=== PATIENT | male | born 1955 | race Caucasian/White ===

== ENCOUNTER 2021-10-17 10:26 | Emergency (ER) | payer MEDICARE, OTHER ==
[2021-10-17] MEDS ORDERED: MEDROL DOSEPAK 24 MG PO (14:32)
== END 2021-10-17 14:43 | disposition home or self-care (01) ==
LOC: ER1 10:26
DX: M51.86 Other intervertebral disc disorders, lumbar region (principal); F17.200 Nicotine dependence, unspecified, uncomplicated
CPT/HCPCS: 72131; 96374; 99283; J2930

== ENCOUNTER → 2021-10-21 | Outpatient (CLI) | payer MEDICARE, OTHER ==
[~2021-10-21] MED LIST: MEDROL DOSEPAK 24 MG PO
== END ==
LOC: KOH-I 12:13
DX: M51.16 Intervertebral disc disorders with radiculopathy, lumbar region (principal); M71.38 Other bursal cyst, other site
CPT/HCPCS: 72148

== ENCOUNTER 2021-10-27 09:01 | Emergency (ER) | payer MEDICARE, OTHER | END 2021-10-27 11:34 | disposition left against medical advice (07) | LOC: ER1 09:01 | DX: Z53.21 Procedure and treatment not carried out due to patient leaving prior to being seen by health care provider (principal) ==

== ENCOUNTER 2021-11-03 11:46 | Emergency (ER) | payer MEDICARE, OTHER | END 2021-11-03 13:20 | disposition home or self-care (01) | LOC: ER1 11:46 | DX: M25.552 Pain in left hip (principal); F17.200 Nicotine dependence, unspecified, uncomplicated | CPT/HCPCS: 96374; 99283; J2270 ==

== ENCOUNTER 2021-11-04 10:52 | Emergency (ER) | payer MEDICARE, OTHER | END 2021-11-04 13:45 | disposition home or self-care (01) | LOC: ER1 10:52 | DX: M51.26 Other intervertebral disc displacement, lumbar region (principal); M71.38 Other bursal cyst, other site; G89.29 Other chronic pain; I10 Essential (primary) hypertension | CPT/HCPCS: 99283; J1885 ==

== ENCOUNTER → 2021-11-17 | Outpatient (CLI) | payer MEDICARE, OTHER ==
[~2021-11-17] MED LIST changes: +FINASTERIDE5 MG PO
[2021-11-17 14:18] LABS: HEMOGLOBIN 15.2 gm/dl (14.0-17.5); RED BLOOD COUNT 4.86 M/UL (4.20-5.50); WHITE BLOOD COUNT 8.1 K/UL (4.5-11.0)
[2021-11-17 14:29] LABS: BUN/CREATININE RATIO 15 (0-10)
[2021-11-18 13:10] LABS: HBSAG SCREEN Negative (Negative); HCV AB <0.1 (0.0-0.9); HEP A AB, IGM Negative (Negative); HEP B CORE AB, IGM Negative (Negative)
== END ==
LOC: OPSV2 12:30
PROVIDERS: Orthopaedic Surgery
DX: Z01.818 Encounter for other preprocedural examination (principal); M54.16 Radiculopathy, lumbar region; M48.061 Spinal stenosis, lumbar region without neurogenic claudication
CPT/HCPCS: 36415; 71046; 80048; 80074; 80307; 81001; 83036; 85025; 87081; 93005

== ENCOUNTER → 2021-11-25 | Outpatient (CLI) | payer MEDICARE, OTHER | LOC: LAB 11:09 | DX: Z01.818 Encounter for other preprocedural examination (principal) | CPT/HCPCS: 81001; 87077; 87086; 87186 ==

== ENCOUNTER → 2021-12-01 | Outpatient (CLI) | payer MEDICARE, OTHER ==
[2021-12-01 14:33] LABS: BUN/CREATININE RATIO 12 (0-10)
== END ==
LOC: LAB 13:41
PROVIDERS: Orthopaedic Surgery
DX: Z01.812 Encounter for preprocedural laboratory examination (principal); M54.16 Radiculopathy, lumbar region; M48.061 Spinal stenosis, lumbar region without neurogenic claudication
CPT/HCPCS: 36415; 80048; 85610; 85730; 86850; 86900; 86901

== ENCOUNTER 2021-12-02 03:49 | Inpatient (IN) | payer MEDICARE, OTHER ==
[~2021-12-02] VITALS: Ht 175.3 cm; Wt 73.0 kg
[2021-12-02 14:29] LABS: HEMOGLOBIN 12.9 gm/dl (14.0-17.5); RED BLOOD COUNT 4.2 M/UL (4.20-5.50); WHITE BLOOD COUNT 19.3 K/UL (4.5-11.0)
[2021-12-02 14:46] LABS: BUN/CREATININE RATIO 13 (0-10)
[2021-12-03 04:49] LABS: HEMOGLOBIN 11.5 gm/dl (14.0-17.5); WHITE BLOOD COUNT 16.7 K/UL (4.5-11.0)
[2021-12-03 04:53] LABS: RED BLOOD COUNT 3.68 M/UL (4.20-5.50)
[2021-12-03 04:59] LABS: BUN/CREATININE RATIO 17 (0-10)
[2021-12-04 04:21] LABS: HEMOGLOBIN 11.9 gm/dl (14.0-17.5); RED BLOOD COUNT 3.82 M/UL (4.20-5.50)
[2021-12-04 04:43] LABS: BUN/CREATININE RATIO 17 (0-10)
[2021-12-05 04:55] LABS: HEMOGLOBIN 11.2 gm/dl (14.0-17.5); RED BLOOD COUNT 3.65 M/UL (4.20-5.50); WHITE BLOOD COUNT 15.5 K/UL (4.5-11.0)
[2021-12-05 05:22] LABS: BUN/CREATININE RATIO 13 (0-10)
[2021-12-06 05:03] LABS: RED BLOOD COUNT 3.6 M/UL (4.20-5.50)
[2021-12-06 16:56] LABS: BUN/CREATININE RATIO 16 (0-10)
--- NOTE | 2021-12-06 18:12 | NUR ---
CHANGED PT DRESSINGS ON SURGICAL INCISIONS.
[2021-12-07 07:18] LABS: HEMOGLOBIN 10.4 gm/dl (14.0-17.5); RED BLOOD COUNT 3.43 M/UL (4.20-5.50); WHITE BLOOD COUNT 14.7 K/UL (4.5-11.0)
[2021-12-07 07:40] LABS: BUN/CREATININE RATIO 19 (0-10)
--- NOTE | 2021-12-07 13:01 | NUR ---
ROOM AIR O2 SAT, 85%
[2021-12-07] MEDS ORDERED: CEPHALEXIN500 MG PO (13:07)
[2021-12-07] MEDS ORDERED: ROXICODONE5 MG PO (13:07)
[2021-12-07 21:17] LABS: BUN/CREATININE RATIO 20 (0-10)
[2021-12-08 06:51] LABS: HEMOGLOBIN 10.5 gm/dl (14.0-17.5); RED BLOOD COUNT 3.47 M/UL (4.20-5.50); WHITE BLOOD COUNT 12.3 K/UL (4.5-11.0)
[2021-12-08 07:25] LABS: BUN/CREATININE RATIO 20 (0-10)
== END 2021-12-08 12:19 | disposition home or self-care (01) | DRG 454 ==
LOC: OR 03:49 → CCU 03:49 → OR 07:30 → CCU 14:53 → OR 14:54 → CCU 14:55
PROVIDERS: Internal Medicine; Nurse Practitioner Family; ADMIT Orthopaedic Surgery
PROC: 0SB20ZZ Excision of Lumbar Vertebral Disc, Open Approach (ICD-10-PCS; 2021-12-02)
PROC: 0SB40ZZ Excision of Lumbosacral Disc, Open Approach (ICD-10-PCS; 2021-12-02)
PROC: 01NB0ZZ Release Lumbar Nerve, Open Approach (ICD-10-PCS; 2021-12-02)
PROC: 3E0U0GB Introduction of Recombinant Bone Morphogenetic Protein into Joints, Open Approach (ICD-10-PCS; 2021-12-02)
PROC: 4A11X4G Monitoring of Peripheral Nervous Electrical Activity, Intraoperative, External Approach (ICD-10-PCS; 2021-12-02)
PROC: 0SG00AJ Fusion of Lumbar Vertebral Joint with Interbody Fusion Device, Posterior Approach, Anterior Column, Open Approach (ICD-10-PCS; principal; 2021-12-02 07:30)
PROC: 0SG3071 Fusion of Lumbosacral Joint with Autologous Tissue Substitute, Posterior Approach, Posterior Column, Open Approach (ICD-10-PCS; 2021-12-02 07:30)
PROC: 0SG1071 Fusion of 2 or more Lumbar Vertebral Joints with Autologous Tissue Substitute, Posterior Approach, Posterior Column, Open Approach (ICD-10-PCS; 2021-12-02 07:30)
DX: M48.061 Spinal stenosis, lumbar region without neurogenic claudication (principal); J98.11 Atelectasis; E87.1 Hypo-osmolality and hyponatremia; Z20.822 Contact with and (suspected) exposure to COVID-19; M43.16 Spondylolisthesis, lumbar region; M54.16 Radiculopathy, lumbar region; N40.0 Benign prostatic hyperplasia without lower urinary tract symptoms; R09.02 Hypoxemia; D72.829 Elevated white blood cell count, unspecified; F10.10 Alcohol abuse, uncomplicated; J44.9 Chronic obstructive pulmonary disease, unspecified; G89.29 Other chronic pain; F41.9 Anxiety disorder, unspecified; M71.38 Other bursal cyst, other site; F17.210 Nicotine dependence, cigarettes, uncomplicated; F32.A Depression, unspecified; Z87.440 Personal history of urinary (tract) infections; Z93.0 Tracheostomy status
CPT/HCPCS: 36415; 71045; 72100; 72110; 76000; 80048; 81001; 83735; 85025; 85027; 85610; 85730; 86850; 86900; 86901; 97116; 97116-GP-CQ; 97161; 97166; 97530; 97535; C1713; C1762; C1776; C1781; J0690; J1040; J1170; J2405; J3370; J7040

== ENCOUNTER 2021-12-09 23:18 | Emergency (ER) | payer MEDICARE, OTHER ==
[~2021-12-09 23:18] MED LIST changes: +CEPHALEXIN500 MG PO; +ROXICODONE5 MG PO
== END 2021-12-10 00:46 | disposition left against medical advice (07) ==
LOC: ER1 23:18
DX: M54.9 Dorsalgia, unspecified (principal); W19.XXXA Unspecified fall, initial encounter
CPT/HCPCS: 99281